=== PATIENT | female | born 1965 | race Caucasian/White ===

== ENCOUNTER 2023-12-01 08:33 | Outpatient (CLI) | payer BC | END 2023-12-01 23:59 | disposition home or self-care (01) | LOC: MRI02 08:33 | PROVIDERS: ATTEND Family Medicine Sports Medicine | DX: M19.042 Primary osteoarthritis, left hand (principal); M79.642 Pain in left hand; M65.312 Trigger thumb, left thumb | CPT/HCPCS: 73718 ==